=== PATIENT | female | born 1980 | race Two or more races ===

== ENCOUNTER 2022-10-20 11:28 | Emergency (ER) | payer MEDICAID, OTHER ==
[~2022-10-20] VITALS: Ht 152.4 cm; Wt 88.0 kg
[2022-10-20 12:32] VITALS: BP 111/75
[2022-10-20] MEDS ORDERED: PROM1SOL4 PO (13:24)
[2022-10-20] MEDS ORDERED: AMOX875T3 PO (13:24)
== END 2022-10-20 13:31 | disposition home or self-care (01) ==
LOC: ER 11:28
DX: H66.92 Otitis media, unspecified, left ear (principal); J03.90 Acute tonsillitis, unspecified; Z20.822 Contact with and (suspected) exposure to COVID-19; Z79.899 Other long term (current) drug therapy; Z79.2 Long term (current) use of antibiotics
CPT/HCPCS: 36415; 87426

== ENCOUNTER 2024-01-07 00:03 | Inpatient (IN) | payer MEDICAID, OTHER ==
[~2024-01-07] VITALS: Ht 152.4 cm; Wt 67.7 kg
[~2024-01-07 00:03] MED LIST: AMOX875T3 PO; PROM1SOL4 PO
[2024-01-07] MEDS: DexAMETHasone SOD PHOS 10MG/1ML VIAL INJ IM ONE (00:30)
[2024-01-07] MEDS: diphenhdrAMINE HCL 50 MG/1 ML VL ONE (00:30)
[2024-01-07] MEDS: diphenhdrAMINE HCL 50 MG/1 ML VL IM ONE (00:31)
[2024-01-07] MEDS: EPINEPHrine HCL 1 MG/1 ML AMP IM ONE (01:44)
[2024-01-07] MEDS: diphenhdrAMINE HCL 50 MG/1 ML VL IV ONE (01:57)
[2024-01-07] MEDS: FAMOTIDINE (10MG/ML) 2ML VL IV ONE (02:00)
[2024-01-07] MEDS ORDERED: DOCUSATE SOD 100 MG CAP PO PRN (04:45)
[2024-01-07] MEDS ORDERED: diphenhdrAMINE HCL 50 MG/1 ML VL IV PRN (04:45)
[2024-01-07] MEDS ORDERED: ACETAMINOPHEN 325 MG TAB PO PRN (04:45)
[2024-01-07] MEDS ORDERED: ONDANSETRON HCL 4 MG/2 ML VIAL IV PRN (04:45)
[2024-01-07] MEDS ORDERED: HYDROcodone-ACET 5/325MG TAB PO PRN (04:45)
[2024-01-07] MEDS ORDERED: MORPHINE SULFATE INJ 2 MG/ml SYRG IV PRN (06:30)
[2024-01-07] MEDS ORDERED: NITROGLYCERIN 0.4 MG SL TAB SL PRN (06:30)
[2024-01-07] MEDS: DexAMETHasone SOD PHOS 10MG/1ML VIAL INJ IV SCH (06:54)
[2024-01-07] MEDS: SODIUM CHLORIDE 0.9% 1,000 ML IV SCH (06:54)
[2024-01-07 07:05] LABS: Basophils # (auto) 0 10 ^3/uL (0-0.2); Basophils % (auto) 0.1 % (0.0-2.0); Eosinophils # (auto) 0 10 ^3/uL (0-0.8); Hematocrit 45.2 % (36.0-46.0); Lymphocytes # (auto) 0.6 10 ^3/uL (0.4-5.4); Lymphocytes % (auto) 5.2 % (10.0-50.0); Mean Corpuscular Hemoglobin 30.5 pg (28.0-32.0); Mean Corpuscular Hgb Conc. 33.1 g/dL (32.0-36.0); Mean Corpuscular Volume 92.2 fL (80.0-100.0); Monocytes # (auto) 0.1 10 ^3/uL (0-1.3); Monocytes % (auto) 1.1 % (0.0-12.0); Neutrophils # (auto) 10.2 10 ^3/uL (1.6-8.6); Neutrophils % (auto) 93.6 % (37.0-80.0); Nucleated Red Blood Cells % 0.1 %; Red Blood Cells 4.91 10^6/uL (4.0-5.20); Red Cell Distribution Width 13.8 % (11.8-14.3); White Blood Cell 10.9 10^3/uL (4.4-10.8)
[2024-01-07 07:25] LABS: Alanine Aminotransferase 15 U/L (7-40); Alkaline Phosphatase 74 U/L (46-116); Anion Gap 11 (5-15); Aspartate Aminotransferase 25 U/L (13-40); BUN/Creatinine Ratio 17.3 (10.0-20.0); Bilirubin, Total 0.9 mg/dL (0.2-1.0); Blood Urea Nitrogen 13 mg/dL (9-23); Carbon Dioxide 17 mmol/L (20-30); Chloride 109 mmol/L (98-107); Glucose 176 mg/dL (74-106); Potassium 4.3 mmol/L (3.5-5.1); Sodium 137 mmol/L (136-145); Total Protein 6.6 g/dL (5.7-8.2)
[2024-01-07 07:30] VITALS: PULSE 80; RESP 16; O2SAT 96
[2024-01-07 08:25] LABS: Platelet Estimate Adequate; RBC Morphology Normal
[2024-01-07] MEDS ORDERED: CETI10CA10 PO (13:59)
[2024-01-07] MEDS ORDERED: PRED-1055 PO (13:59)
[2024-01-07] MEDS ORDERED: EPIN0.1I11 IJ (13:59)
[2024-01-07 14:09] VITALS: BP 96/63; PULSE 91; RESP 16; TEMP 97.9; O2SAT 98
[2024-01-07 15:00] VITALS: BP 92/48; PULSE 95; RESP 17; O2SAT 96
== END 2024-01-07 14:01 | disposition home or self-care (01) | DRG 811 ==
LOC: ER 00:03 → TELE 06:19
PROVIDERS: ADMIT Nurse Practitioner Family; ATTEND Nurse Practitioner Family
DX: T78.2XXA Anaphylactic shock, unspecified, initial encounter (principal); Z79.2 Long term (current) use of antibiotics; X58.XXXA Exposure to other specified factors, initial encounter; Z91.018 Allergy to other foods; Z79.899 Other long term (current) drug therapy; Y93.89 Activity, other specified; Y92.89 Other specified places as the place of occurrence of the external cause; Y99.8 Other external cause status
CPT/HCPCS: 36415; 80053; 85025; 96372; 96374; 96375; 99291; G0378; J0171; J1100; J3490